=== PATIENT | female | born 1960 | race Two or more races ===

== ENCOUNTER 2018-10-31 06:39 | Emergency (ER) | payer BC ==
[~2018-10-31] VITALS: Ht 162.6 cm; Wt 61.1 kg
[2018-10-31 09:16] VITALS: BP 125/60
== END 2018-10-31 09:57 | disposition home or self-care (01) ==
LOC: ED 09:51
DX: N13.2 Hydronephrosis with renal and ureteral calculous obstruction (principal); I10 Essential (primary) hypertension; E78.5 Hyperlipidemia, unspecified
CPT/HCPCS: 36415; 74176; 76700; 80053; 81001; 83690; 85025; 96374; 96375; 99284; J1170; J1885; J2405